=== PATIENT | male | born 1970 | race Caucasian/White ===

== ENCOUNTER 2020-06-15 07:58 | Outpatient (CLI) | payer OTHER ==
--- NOTE | 2020-06-15 08:48 | ULT ---
EXAM: Abdominal ultrasound PROVIDED CLINICAL HISTORY: Right-sided abdominal pain COMPARISON: None FINDINGS: Visualized portions of the pancreas, IVC and aorta appear normal. Liver demonstrates no mass or intrahepatic biliary ductal dilatation. Fatty infiltration of the liver is demonstrated. The liver appears enlarged, measuring about 20 cm in craniocaudal dimension at the right hepatic lobe. Common duct is nondilated. Gallbladder demonstrates no stones, wall thickening or pericholecystic fluid. Kidneys demonstrate no hydronephrosis or solid mass. Spleen is mildly enlarged measuring about 13.3 cm in craniocaudal dimension, and demonstrates no foca l abnormality. IMPRESSION: 1. Hepatosplenomegaly. 2. Hepatic steatosis.
== END 2020-06-15 07:59 | disposition home or self-care (01) ==
LOC: SCSULT 07:58
PROVIDERS: ATTEND Family Medicine
DX: R10.9 Unspecified abdominal pain (principal); K76.0 Fatty (change of) liver, not elsewhere classified; R16.2 Hepatomegaly with splenomegaly, not elsewhere classified
CPT/HCPCS: 93975